=== PATIENT | male | born 1975 | race Caucasian/White ===

== ENCOUNTER → 2018-05-08 11:48 | Outpatient (CLI) | payer OTHER, SELFPAY ==
--- NOTE | 2018-05-08 11:50 | DI.RAD.S_ITS ---
PROCEDURE: XR KNEE RT 3V INDICATIONS: right knee pain TECHNIQUE: 3 views of the knee were acquired. COMPARISON: None. FINDINGS: Bones: No fractures or dislocations. No suspicious bony lesions. Lateral tilt of the patella. Degenerative spurring and mild subchondral sclerosis. Soft tissues: Trace joint effusion. IMPRESSION: Mild right knee joint degeneration with trace joint effusion. Lateral patellar tilt Dictated by: Rodger Mccloud M.D. on 05/08/2018 at 13:01 Approved by: Rodger Mccloud M.D. on 05/08/2018 at 13:03
== END ==
PROVIDERS: Family Provider Family Medicine; PCP Family Medicine; Visit Provider Family Medicine
DX: M25.561 Pain in right knee (principal); M17.11 Unilateral primary osteoarthritis, right knee
CPT/HCPCS: 73562

== ENCOUNTER → 2021-11-19 14:27 | Outpatient (CLI) | payer OTHER, SELFPAY ==
--- NOTE | 2021-11-19 14:28 | DI.RAD.S_ITS ---
PROCEDURE: XR KNEE RT 3V INDICATIONS: posterior knee pain TECHNIQUE: 3 views of the knee were acquired. COMPARISON: [facility], , XR KNEE RT 3V, 05/08/2018, 12:11. FINDINGS: Bones: No fractures or dislocations. No suspicious bony lesions. Soft tissues: No joint effusion. A subtle radiopacity is projected over the posterior popliteal fossa. IMPRESSION: Questionable soft tissue mass within the popliteal fossa. Findings may represent overlapping vascular and soft tissues. If further characterization is warranted, ultrasound of this region could be used. Dictated by: Jia Campbell M.D. on 11/19/2021 at 17:03 Approved by: Jia Campbell M.D. on 11/19/2021 at 17:04
== END ==
PROVIDERS: Family Provider Family Medicine; PCP Family Medicine; Referring Provider Family Medicine; Visit Provider Family Medicine
DX: M25.561 Pain in right knee (principal)
CPT/HCPCS: 73562

== ENCOUNTER → 2021-11-23 16:42 | Outpatient (CLI) | payer OTHER, SELFPAY ==
--- NOTE | 2021-11-23 16:45 | DI.US.S_ITS ---
PROCEDURE: US EXTREMITY NONVASC LOWER RT INDICATIONS: FOLLOW UP XR TECHNIQUE: Real-time scanning was performed of the posterior right knee, with image documentation. COMPARISON: [facility], THERESA, XR KNEE RT 3V, 05/08/2018, 12:11. [facility], CR, XR KNEE RT 3V, 11/19/2021, 14:42. FINDINGS: There is a 2.6 x 1.4 x 1.8 cm hypoechoic area in medial right popliteal fossa and show no internal vascularity. Thin internal septations are seen. IMPRESSION: Finding may represent a 2.6 x 1.4 x 1.8 cm right popliteal cyst. Dictated by: Guanaco Kaminski M.D. on 11/24/2021 at 8:39 Approved by: Guanaco Kaminski M.D. on 11/24/2021 at 9:00
== END ==
PROVIDERS: Family Provider Family Medicine; PCP Family Medicine; Referring Provider Family Medicine; Visit Provider Family Medicine
DX: M25.569 Pain in unspecified knee (principal)
CPT/HCPCS: 76882

== ENCOUNTER → 2022-10-28 07:35 | Outpatient (CLI) | payer OTHER, SELFPAY ==
[2022-10-28 09:12] LABS: Add Manual Diff / Slide Review NO; Basophils Absolute Auto 0 /uL (0-100); Basophils Percent Auto 0.8 % (0-2); Eosinophils Absolute Auto 100 /uL (0-450); Eosinophils Percent Auto 2.4 % (2-4); Hematocrit 44.1 % (41-53); Hemoglobin 15.2 g/dL (13.5-17.5); Lymphocytes Absolute Auto 1300 /uL (1100-4500); Lymphocytes Percent Auto 28.9 % (25-40); Mean Corpuscular HGB Conc 34.6 % (30-36); Mean Corpuscular Hemoglobin 30.8 PG (26-34); Monocytes Absolute Auto 500 /uL (0-900); Monocytes Percent Auto 10.2 % (3-14); Neutrophils Absolute Auto 2600 /uL (1500-7000); Neutrophils Percent Auto 57.7 % (50-75); Platelet Count 195 X10^3/uL (150-400); Red Blood Cell Count 4.95 X10^6/uL (4.5-5.9); Red Cell Distribution Width 13.2 % (11.6-14.8); White Blood Cell Count 4.6 X10^3/uL (4.5-11.0)
[2022-10-28 09:19] LABS: Alanine Aminotransferase 31 IU/L (<50); Albumin Globulin Ratio 1.2 (1.0-2.8); Alkaline Phosphatase 84 U/L (38-126); Aspartate Aminotransferase 27 IU/L (17-59); BUN Creatinine Ratio 16.1 (6-22); Bilirubin Total 0.6 mg/dL (0.2-1.3); Blood Urea Nitrogen 14 mg/dL (9-20); Calcium 9.2 mg/dL (8.4-10.2); Carbon Dioxide 24 mmol/L (22-32); Chloride 106 mmol/L (98-107); Cholesterol 217 mg/dL (140-199); Estimated Glomerular Filt Rate > 60 mL/min (>60); Globulin 3.3 g/dL (1.7-4.1); Glucose 105 mg/dL (70-100); HDL Cholesterol 53 mg/dL (40-60); HEMOLYSIS < 15 (0-50); LDL Cholesterol Calculated 131 mg/dL (<100); Potassium 4.2 mmol/L (3.4-5.1); Sodium 138 mmol/L (137-145); Total Protein 7.3 g/dL (6.3-8.2); Triglycerides 166 mg/dL (35-150)
== END ==
PROVIDERS: Family Provider Family Medicine; PCP Family Medicine; Referring Provider Family Medicine; Visit Provider Family Medicine
DX: Z00.00 Encounter for general adult medical examination without abnormal findings (principal); Z13.6 Encounter for screening for cardiovascular disorders
CPT/HCPCS: 36415; 80053; 80061; 85025

== ENCOUNTER → 2022-12-06 09:53 | Outpatient (CLI) | payer OTHER, SELFPAY ==
--- NOTE | 2022-12-06 09:55 | DI.RAD.S_ITS ---
PROCEDURE: XR LUMBAR SPINE MIN 4V INDICATIONS: lbp TECHNIQUE: 5 views of the lumbar spine were acquired, including bilateral oblique views. COMPARISON: None. FINDINGS: Bones: 5 nonrib-bearing vertebrae are present. There is normal bony alignment. No vertebral body compression fractures. No suspicious bony lesions. Soft tissues: Overlying bowel gas pattern is normal. No suspicious soft tissue calcifications. Oblique images: No pars defects. IMPRESSION: No compression fracture or spondylolisthesis in lumbar spine. No pars defects. Dictated by: Guanaco Kaminski M.D. on 12/06/2022 at 11:42 Approved by: Guanaco Kaminski M.D. on 12/06/2022 at 11:42
[2022-12-06 11:14] LABS: C-Reactive Protein Quant 1.6 mg/dL (<1.0); Rheumatoid Factor < 8.6 IU/mL (<12.0)
[2022-12-06 11:25] LABS: Erythrocyte Sedimentation Rate 18 MM/HR (0-15)
== END ==
PROVIDERS: Family Provider Family Medicine; PCP Family Medicine; Referring Provider Family Medicine; Visit Provider Family Medicine
DX: M54.50 Low back pain, unspecified (principal); M62.81 Muscle weakness (generalized)
CPT/HCPCS: 36415; 72110; 85651; 86140; 86430

== ENCOUNTER → 2023-05-09 10:00 | Outpatient (CLI) | payer OTHER, SELFPAY ==
[2023-05-09 11:43] LABS: HEMOLYSIS < 15 (0-50); Iron 87 ug/dL (49-181)
[2023-05-09 11:53] LABS: Percent Iron Saturation 37 % (20-50); Total Iron Binding Capacity 237 ug/dL (261-462); Transferrin 200 mg/dL (206-381)
[2023-05-09 12:08] LABS: Ferritin 426 ng/mL (18-464)
== END ==
PROVIDERS: Family Provider Family Medicine; PCP Family Medicine; Referring Provider Family Medicine; Visit Provider Family Medicine
DX: R79.89 Other specified abnormal findings of blood chemistry (principal)
CPT/HCPCS: 36415; 82728; 83540; 83550

== ENCOUNTER 2023-06-22 11:13 | Outpatient (CLI) | payer OTHER, SELFPAY ==
[2023-06-22] VITALS (9 sets, daily range): BP systolic 96–125; BP diastolic 52–81; PULSE 83–89; RESP 11–18; TEMP 36.6; O2SAT 95–100
--- NOTE | 2023-06-22 11:23 | DI.RAD.S_ITS ---
PROCEDURE: PAIN L/S FACET INJ/BLK 1ST KARAN INDICATIONS: lumbar spondylosis COMPARISON: [facility], CR, XR LUMBAR SPINE MIN 4V, 12/06/2022, 9:55. FINDINGS: Fluoroscopic spot filming was performed to verify placement of spinal needles at the bilateral L3, L4, and L5 levels, as labeled on the films. Appropriate locations of the needle tips were confirmed by injection of iodinated contrast. IMPRESSION: Intraprocedural examination demonstrates appropriate needle positioning. Approved by: Angel Nixon M.D. on 06/22/2023 at 22:17
[2023-06-22] MEDS: MIDAZOLAM 2 MG/2 ML VIAL IV (11:40)
[2023-06-22] MEDS: BUPIVACAINE 0.5% (PF) 10 ML VIAL 5 ML INJ (11:43)
[2023-06-22] MEDS: iopamidoL 15 ML VIAL 3 ML INJ (11:44)
--- NOTE | 2023-06-22 11:55 | P.PCN_ITS ---
Date/Time/Diagnoses Date of procedure: 06/22/23 Time of procedure: 11:30 Procedure Notes Physician: Carlos Alberto Tyler Total Fluoroscopy time (seconds): 16 Total sedation minutes: 12 Procedure in detail & Post-procedure care: Bilateral L3, 4, 5 Lumbar Medial Branch Blocks Indications: Joe is presenting for treatment of lumbar spondylosis with low back pain. Preoperative diagnosis: Lumbar spondylosis Postoperative diagnosis: Same Pre-procedure History: F Patient demonstrates today moderate to severe non- radicular back pain without neurologic deficit aggravated by hyperextension yes Back pain greater than leg pain? F yes Patient today has tenderness over the suspected joint(s) yes History of post-traumatic injury? no Hypertrophic arthropathy F yes Back pain associated with suspected motion segment instability, hypermobility or pseudoarthrosis no Focused Examination: Ax3 Mood and affect are normal Vital Signs: VSS ASA: 2 Consent: Following review of allergies and potential side effects/complications, including, but not necessarily limited to, infection, allergic reaction, local tissue breakdown, stroke, temporary or permanent nerve injury, paralysis, and possible , the patient indicated that they understood and agreed to proceed.? An informed consent document was signed by the patient, witnessed by a nurse and placed in the patient's chart.? Additionally, other treatment options including medications and physical therapy were reviewed with the patient. All questions were answered. Site was then marked. Anesthesia: After review of previous anesthetic history and IV conscious sedation, the patient was deemed safe to proceed with today's procedure with IV conscious sedation. IV sedation was accomplished with midazolam 2 mg administered by the RN after order by Dr. Tyler. Sedation was titrated to patient comfort during the course of the procedure. Patient remained responsive to all verbal commands. Position: Prone Monitoring: NIBP, Pulse oximetry, 3 lead EKG Needle used: 22 ga 3.5 inch spinal needle Contrast: Isovue 300M Injectate: 0.5% bupivacaine 1 mL per site Procedure: The patient was brought into the procedure room and positioned into the prone position. Skin was prepped with a Chloraprep solution, allowed to air dry, and then draped in sterile fashion.? The right L4-5 and L5-S1 facet joints were visually identified with fluoroscopy. Lidocaine 1% was used to anesthetize the skin over each target destination with a 25ga needle. A 22 ga, 3.5 inch spinal needle was advanced to the location of the medial branch at the junction of the superior articular process and the transverse process at L4,5 and the base of the SAP of the sacrum using intermittent fluoroscopy in the AP view. Isovue 300M contrast 0.2ml was injected at each level outlining the medial borders for each level and the base of the SAP of the sacrum in the AP and lateral views. There was no evidence of vascular or intrathecal uptake. The above injectate was slowly injected at each target destination. The left L4-5 and L5-S1 facet joints were visually identified with fluoroscopy. Lidocaine 1% was used to anesthetize the skin over each target destination with a 25ga needle. A 22 ga, 3.5 inch spinal needle was advanced to the location of the medial branch at the junction of the superior articular process and the transverse process at L4,5 and the base of the SAP of the sacrum using intermittent fluoroscopy in the AP view. Isovue 300M contrast 0.2ml was injected at each level outlining the medial borders for each level and the base of the SAP of the sacrum in the AP and lateral views. There was no evidence of vascular or intrathecal uptake. The above injectate was slowly injected at each target destination. At the end of the procedure the needles were withdrawn and Band- Aids were applied for a dressing. Post Procedure: Patient was taken to the recovery and monitored. The patient was provided a Pain Log to continue to record the patient's response to the target- specific procedure prior to the patient's follow-up visit with the referring physician. Patient was stable upon discharge. Detailed post procedure instructions were provided. Patient was asked to call in the event of worsening pain, fever, weakness, numbness or bladder or bowel incontinence. Based on the medial branches blocked today, if the patient meets insurance criteria for radiofrequency, the treatment should result in the denervation of the bilateral L4-5 and L5-S1 facet joint nerves. We would expect to denervate a total of 4 facets during the radiofrequency ablation.
== END 2023-06-22 12:15 | disposition home or self-care (01) ==
LOC: RAD 11:14
PROVIDERS: Family Provider Family Medicine; PCP Family Medicine; Referring Provider Anesthesiology; Visit Provider Anesthesiology
DX: M47.816 Spondylosis without myelopathy or radiculopathy, lumbar region (principal)
CPT/HCPCS: 64493; 64494; 99152; J2250

== ENCOUNTER → 2024-01-30 09:20 | Outpatient (CLI) | payer OTHER, SELFPAY ==
--- NOTE | 2024-01-30 09:23 | DI.RAD.S_ITS ---
PROCEDURE: XR CERVICAL SPINE 2V OR 3V INDICATIONS: mid neck pain TECHNIQUE: 3 view(s) of the cervical spine were acquired. COMPARISON: None. FINDINGS: Bones: No fractures or dislocations to the C6 level. Mild degenerative changes most pronounced at C5-C6. The lateral masses of C1 appear intact on the odontoid view. No suspicious bony lesions. Soft tissues: No prevertebral soft tissue swelling. IMPRESSION: Mild degenerative changes most pronounced at C5-C6. Dictated by: Angel Ramirez M.D. on 01/30/2024 at 18:26 Approved by: Angel Ramirez M.D. on 01/30/2024 at 18:27
== END ==
PROVIDERS: Family Provider Family Medicine; PCP Family Medicine; Referring Provider Family Medicine; Visit Provider Family Medicine
DX: M54.2 Cervicalgia (principal); M47.812 Spondylosis without myelopathy or radiculopathy, cervical region
CPT/HCPCS: 72040

== ENCOUNTER 2024-05-09 09:03 | Day surgery (SDC) | payer OTHER, SELFPAY ==
--- NOTE | 2024-05-09 | PATH_ITS ---
[facility] Accession Number: [id number] No. of containers..04 Tissue . 01 Material submitted: . PART A: colon - RIGHT COLON PART B: colon - TRANSVERSE PART C: colon - LEFT COLON PART D: colon - COLON POLYP AT 40 . 01 Diagnosis: A. RIGHT COLON, BIOPSY: Colonic mucosa with no significant diagnostic abnormality. Negative for active inflammation, granulomas, dysplasia, and malignancy. . B. TRANSVERSE COLON, BIOPSY: Colonic mucosa with no significant diagnostic abnormality. Negative for active inflammation, granulomas, dysplasia, and malignancy. . C. LEFT COLON, BIOPSY: Colonic mucosa with no significant diagnostic abnormality. Negative for active inflammation, granulomas, dysplasia, and malignancy. . D. COLON POLYP AT 40 CM: Colonic mucosa with prominent benign lymphoid aggregate and focal mucosal hyperplasia. Negative for dysplasia or malignancy. [facility] 05/11/2024 1047 Local . 01 Electronically signed: . Hipolito Fletcher MD, PhD, Pathologist NPI- [id number] . 01 Gross description: . A. Received in formalin with two patient identifiers and 1. Right colon, are six valencia soft tissue fragments, 0.2-0.4 cm in greatest dimension, submitted in A1. B. Received in formalin with two patient identifiers and 2. Transverse colon, are five valencia soft tissue fragments, 0.3-0.5 cm in greatest dimension, submitted in B1. C. Received in formalin with two patient identifiers and 3. Left colon, are multiple valencia soft tissue fragments aggregating to 2.0 x 0.4 x 0.2 cm. Filtered and submitted in C1. D. Received in formalin with two patient identifiers and 4. Colon polyp at 40, is a single valencia soft tissue fragment, 0.3 cm in greatest dimension, submitted in D1. ([id number]) /MRV 05/10/2024 1823 Local . 01 Pathologist provided ICD-10: K50.90, K63.5 . 01 CPT . 096055, 303503, 568872, 009742 Specimen Comment: A courtesy copy of this report has been sent to [phone] Performed at: [address] [address], [place], [place] [id number] MD David Ellis MD Phone: [phone]
[2024-05-09 09:23] VITALS: BP 129/84; PULSE 88; RESP 16; TEMP 36.1; O2SAT 99
[2024-05-09] MEDS: LACTATED RINGERS 1,000 ML 42 ML IV (10:00)
[2024-05-09 10:33] VITALS: BP 103/67; PULSE 98; RESP 16; TEMP 36.2; O2SAT 98
--- NOTE | 2024-05-09 10:33 | PM.PREOP ---
Pre-operative Note Interval Note History & Physical reviewed/Exam performed by Physician: Yes Changes to H&P: No ASA Class (for procedural sedation): II
--- NOTE | 2024-05-09 10:34 | PM.OP.COLON ---
Operative Date/Time/Diagnoses Date of procedure: 05/09/24 Pre-op diagnosis: See indication findings Procedure & Clinicians Study performed: Colonoscopy Same procedure as scheduled: Yes Indications: History of Crohn's disease over 20 years on a yearly colonoscopy regimen Surgeon: Candelario White Procedure Notes Procedure in detail: After informed consent was obtained the patient was placed in left lateral decubitus position. Video colonoscope was introduced the rectum slowly advanced cecum. Preparation was good. On slow withdrawal mucosa was carefully examined. The scope was removed. The patient tolerated procedure well. Blood loss none Complications none Sedation mac Findings 1. Mucosa generally entirely normal throughout the entire colon (see below). Two biopsies were taken every 10 cm and placed in 3 jars, right, transverse, left colon. 2. Extensive pseudopolyps in the sigmoid and left colon from beginning of the sigmoid to the splenic flexure. 3. One isolated small polyp appeared slightly different and this was present at 40 cm. This was snared and removed completely. Total size approximately 5 mm 4. IC valve/anastomosis in the colon was quite scarred down. No active inflammation seen. I was unable to enter this despite the fact GI was using a pediatric colonoscope Will be in touch regarding biopsies. Patient will be in touch via Dr. Villagran have follow-up colonoscopy in a year. He is currently quite asymptomatic but this could change with his strictured area in his right colon
[2024-05-09 10:38] VITALS: BP 101/73; PULSE 98; RESP 12; O2SAT 98
[2024-05-09 10:43] VITALS: BP 114/81; PULSE 87; RESP 14; O2SAT 98
[2024-05-09 10:49] VITALS: BP 126/87; PULSE 85; RESP 16; TEMP 36.2; O2SAT 98
--- NOTE | 2024-05-31 15:45 | PM.HP.IH.1 ---
History of Present Illness History of Present Illness Date Patient Seen: 05/10/24 Chief complaint: Colonoscopy Narrative: Longstanding history of Crohn's colitis currently under excellent control need for follow-up colonoscopy on a yearly basis. Last colonoscopy negative for much inflammation at all REPLACED BY [facility] Medical History Lumbar spondylosis Lumbar radiculopathy Crohn's disease (~1995) Surgical History Anesthesia Status post nasal polypectomy (~2011) S/P tendon repair (~2012) Family History Father Cancer Grandfather Cancer Social History marital status: Smoking Status: Former smoker alcohol intake: current substance use type: does not use Meds Home Medications and Allergies Home Medications Medication Instructions Recorded Confirmed Type azathioprine 50 mg tablet 25 mg PO DAILY 05/09/23 01/30/24 History tirzepatide (weight loss) 2.5 2.5 mg SUBCUT QWEEK 05/09/23 05/09/24 History mg/0.5 mL subcutaneous pen injector (Zepbound) celecoxib 200 mg capsule 200 mg PO BID #60 caps 05/16/23 05/09/24 Rx adalimumab 80 mg/0.8 mL 80 mg SUBCUT DAILY 06/28/23 01/30/24 History subcutaneous pen kit (Humira(CF) Pen Crohn's-Ulc Colitis-Hid Sup Strt) epinephrine 0.3 mg/0.3 mL 0.3 mg (0.3 mL) IM ONCE #2 ea 09/08/23 01/30/24 Rx injection, auto-injector ergocalciferol (vitamin D2) 1,250 1,250 mcg PO QWEEK #60 caps 09/14/23 05/09/24 Rx mcg (50,000 unit) capsule gabapentin 300 mg capsule 600 mg (2 x 300 mg) PO BID #120 01/30/24 01/30/24 Rx caps Allergies Allergy/AdvReac Type Severity Reaction Status Date / Time venom-honey bee Allergy Severe Anaphylaxis Verified 05/09/24 09:16 [BEE VENOM (HONEY BEE)] Exam Vital Signs (past 8 hours): Oxygen Delivery Method Room Air Narrative Exam Narrative: Oropharynx free of lesions Chest clear to auscultation percussion Cardiac exam reveals no S3 or murmur Abdomen is soft nontender Assessment & Plan Assessment and plan (1) Crohn's colitis: Qualifiers: Digestive disease complication type: without complication Qualified Code(s): K50.10 - Crohn's disease of large intestine without complications Status: Acute Plan Need for follow-up colonoscopy at a 1 year interval. Multiple biopsies to be taken. Risks, benefits, alternatives have been explained. Time-Based Coding :: [TOTAL MINUTES] spent with patient and on the chart (including review of chart, obtaining history, exam, reviewing outside data, placing orders, documenting exam and treatment plan, and counseling patient) on [DATE]. PROFEE It Architect Document charge(s): No
== END 2024-05-09 11:05 | disposition home or self-care (01) ==
PROVIDERS: Family Provider Family Medicine; PCP Family Medicine; Referring Provider Internal Medicine Gastroenterology; Visit Provider Internal Medicine Gastroenterology
PROC: 0DJD8ZZ Inspection of Lower Intestinal Tract, Via Natural or Artificial Opening Endoscopic (ICD-10-PCS; CPT 45378; principal; 2024-05-09 10:00)
DX: Z87.19 Personal history of other diseases of the digestive system (principal); K63.5 Polyp of colon
CPT/HCPCS: 45385; 45380; J2704